=== PATIENT | male | born 1965 | race Two or more races ===

== ENCOUNTER 2019-01-20 12:59 | Emergency (ER) | payer OTHER ==
[~2019-01-20] VITALS: Ht 157.5 cm; Wt 120.7 kg
== END 2019-01-20 16:07 | disposition home or self-care (01) ==
LOC: ER 12:59
DX: M10.041 Idiopathic gout, right hand (principal); M79.641 Pain in right hand

== ENCOUNTER 2022-08-25 12:59 | Emergency (ER) | payer OTHER ==
[~2022-08-25] VITALS: Ht 172.7 cm; Wt 149.7 kg
[2022-08-25] MEDS ORDERED: FLUCONAZOLE100 MG PO (22:22)
== END 2022-08-25 23:05 | disposition home or self-care (01) ==
LOC: ER 12:59
DX: B35.4 Tinea corporis (principal)